=== PATIENT | female | born 2005 | race Caucasian/White ===

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

== ENCOUNTER 2023-03-07 10:58 | Emergency (ER) | payer MEDICAID, OTHER ==
[~2023-03-07] VITALS: Ht 148.6 cm; Wt 83.0 kg
--- NOTE | 2023-03-07 11:00 | NUR ---
calling patient. patient in the bathroom vomiting
[2023-03-07 11:04] VITALS: BP 113/79
--- NOTE | 2023-03-07 11:11 | NUR ---
pt to room bed 1
[2023-03-07] MEDS ORDERED: ONDANSETRON 4 MG ODT PO ONE (11:25)
[2023-03-07] MEDS ORDERED: PRED20TA5 PO (11:32)
[2023-03-07] MEDS ORDERED: ONDA-188 PO (11:32)
[2023-03-07] MEDS ORDERED: DEXT30DR2 OP (11:32)
[2023-03-07] MEDS ORDERED: MINE3.5O30 OP (11:32)
[2023-03-07] MEDS ORDERED: VALA1TAB40 PO (11:32)
[2023-03-07 11:43] VITALS: BP 117/63
--- NOTE | 2023-03-07 11:50 | NUR ---
Patient discharged with v/s stable. Written and verbal after care instructions given and explained. Patient alert, oriented and verbalized understanding of instructions. Ambulatory with steady gait. All questions addressed prior to discharge. ID band removed. Patient advised to follow up with PMD. Rx of ARTIFICAL TEARS DROPS, ARTIFICAL EYE LUBRICANT, ZOFRAN, DELTASONE, AND VALACYCLOVIR given. Patient educated on indication of medication including possible reaction and side effects. Opportunity to ask questions provided and answered.
== END 2023-03-07 11:50 | disposition home or self-care (01) ==
LOC: MED 10:58
DX: G51.0 Bell's palsy (principal); Z79.899 Other long term (current) drug therapy
CPT/HCPCS: 99283; Q0162